=== PATIENT | female | born 1945 | race Caucasian/White ===

== ENCOUNTER → 2016-11-13 | Day surgery (SDC) | payer MEDICARE ==
[~2016-11-13] MED LIST: ATOR10TA15 PO; ESSE250T; IOHEXOL 180 MG/ML 20 ML VIAL (for RAD DIAG) EPIDURAL ONE; LEVO88TA2 PO; LIDOCAINE HCL 1% 30 ML VIAL NERV BLOCK ONE; MAGNESIUM PO; MEDI220T PO; POTA99TA; POTA99TA12 PO; PROPOFOL 200 MG/20 ML AMP IV ONE; RANI150T PO; TRIAMCINOLONE ACETONIDE 40 MG/ML VIAL NERV BLOCK ONE; ULTR50TA5 PO
--- NOTE | 2016-11-15 09:35 | M6 ---
cc: AUDREY AGUIRRE DATE: 11/13/2016 1945 PROCEDURE Fluoroscopically guided right L5-S1 transforaminal epidural steroid injection. History and physical was completed and signed. Consent was signed. Procedure site was marked. Medications were listed and reconciled. Pain score was recorded. Allergies were noted. Time out was taken. Fluoroscopy time was recorded where applicable. Sedation was administered or directed by Dr. Aguirre. The patient was given oxygen. The patient was monitored by a registered nurse. Total procedure time was greater than 15 minutes. PROCEDURE NOTE: An IV was started, blood pressure cuff, pulse oximeter and EKG were applied. The patient was placed in the prone position on a Chema table, sedated with small amounts of Versed and propofol titrated to effect. Vital signs were monitored and remained stable throughout the procedure. The patient remained responsive throughout the procedure. The lumbar area was scrubbed with antimicrobial solution, prepped with 10% Betadine solution, and draped with sterile drapes. Fluoroscopy was used in both the AP and lateral projections to clearly visualize the right L5-S1 neural foramen. Then separate sterile 22 gauge, 3-1/2 inch Chiba needles were advanced under fluoroscopic guidance into the dorsal-most aspect of each foramen. There was negative aspiration for blood or CSF. There were no reported paresthesias by the patient. There was no washout of 2 mL of Omnipaque. Then after waiting approximately 60 seconds, the patient was slowly given 3 mL of 1% Xylocaine, 3 mL of Omnipaque and 60 milligrams of Kenalog at each location. Following this, the patient was taken to the recovery room with stable vital signs, neurologically intact. W. MD TYRA Carias/CHANEL /9:16 AM /9:29 AM
== END | disposition home or self-care (01) ==
LOC: PHSDC 07:57
PROVIDERS: ATTEND Pain Medicine Interventional Pain Medicine
DX: M54.5 Low back pain (principal); M79.604 Pain in right leg
CPT/HCPCS: 64483; 99152; J3301; Q9965

== ENCOUNTER → 2017-05-11 | Day surgery (SDC) | payer MEDICARE ==
[~2017-05-11] MED LIST changes: +BUPIVACAINE HCL PF 0.5% 30 ML VIAL ONE; -ESSE250T; +ESSE250T PO; -MAGNESIUM PO; +MEPERIDINE HCL 25 MG/ML VIAL IV ONE; +POTA-255 PO; -POTA99TA12 PO; +methylPREDNISolone ACETATE 40 MG/ML VIAL I-ARTICULR ONE
--- NOTE | 2017-05-11 12:07 | M6 ---
cc: CLINTON AGUIRRE M.D. Corrected Copy: 05/12/17 DATE: 05/11/2017 DATE OF 1945 PROCEDURE Fluoroscopically guided right L4-L5 transforaminal epidural steroid injection. History and physical was completed and signed. Consent was signed. Procedure site was marked. Medications were listed and reconciled. Pain score was recorded. Allergies were noted. Time out was taken. Fluoroscopy time was recorded where applicable. Sedation was administered or directed by Dr. Aguirre. The patient was given oxygen. The patient was monitored by a registered nurse. Total procedure time was greater than 15 minutes. PROCEDURE NOTE An IV was started, blood pressure cuff, pulse oximeter and EKG were applied. The patient was placed in the prone position on a Chema table, sedated with small amounts of Versed and propofol titrated to effect. Vital signs were monitored and remained stable throughout the procedure. The patient remained responsive throughout the procedure. The lumbar area was scrubbed with antimicrobial solution, prepped with 10% Betadine solution, and draped with sterile drapes. Fluoroscopy was used in both the AP and lateral projections to clearly visualize the right L5-S1 neural foramen. Then separate sterile 22 gauge, 3-1/2-inch Chiba needles were advanced under fluoroscopic guidance into the dorsal-most aspect of each foramen. There was negative aspiration for blood or CSF. There were no reported paresthesias by the patient. There was no washout of 2 mL of Omnipaque. Then after waiting approximately 60 seconds, the patient was slowly given 3 mL of 1% Xylocaine, 3 mL of Omnipaque and 60 mg of Kenalog at that location. Following this, the patient was taken to the recovery room with stable vital signs, neurologically intact. W. MD TYRA Carias/JENNA /11:14 AM /12:00 PM AVNI
== END | disposition home or self-care (01) ==
LOC: PHSDC 08:27
PROVIDERS: ATTEND Pain Medicine Interventional Pain Medicine
DX: M54.16 Radiculopathy, lumbar region (principal); E78.00 Pure hypercholesterolemia, unspecified; E07.9 Disorder of thyroid, unspecified; F17.200 Nicotine dependence, unspecified, uncomplicated
CPT/HCPCS: 64483; 99152; J1030; J2175; J3301; Q9965